=== PATIENT | male | born 1935 | race Caucasian/White ===

== ENCOUNTER 2016-07-15 18:24 | Inpatient (IN) | payer MEDICARE, OTHER ==
[~2016-07-15] VITALS: Ht 182.9 cm; Wt 113.3 kg
--- NOTE | ~2016-07-15 | HP ---
PATIENT'S NAME: TIGRE VIRGEN [facility] AGE: 81 Y [address] ROOM: [place] [address] LOCATION: GPCU ADMIT DATE: 07/15/2016 History & Physical DISCHARGE DATE: FAMILY PHYSICIAN: Mk Camilo MD ATTENDING PHYSICIAN: LARON SIMS V DATE OF SERVICE: CHIEF COMPLAINT: Rigors. HISTORY OF PRESENT ILLNESS: The patient is a relatively healthy, 81-year-old male, who was treated for "chest cold" with antibiotics several weeks ago. The patient was at his baseline state of health until early afternoon when he developed sudden onset of rigors, fevers, and generalized weakness. The patient went to the ER where he was found to have a pulse of 107, respirations 16, temperature 101.7, and saturating 84% on room air. The patient admits to some dyspnea, but denies any cough, nausea, or vomiting. He also endorses some generalized abdominal discomfort and was found to have considerable constipation on plain film of his abdomen. In the ER, his workup showed a questionable left lower lobe pneumonia as well as a white count of 1.4, platelets of 77. REVIEW OF SYSTEMS: All systems have been reviewed and are negative aside from the positives mentioned above. PAST MEDICAL HISTORY: 1. Atrial fibrillation, on Coumadin. 2. Essential hypertension. 3. Gout. 4. Permanent pacemaker. PAST SURGICAL HISTORY: Significant for a left hip arthroplasty. SOCIAL HISTORY: The patient has no history or ongoing toxic habits. 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 FAMILY HISTORY: PATIENT'S NAME: TIGRE VIRGEN [facility] AGE: 81 Y [address] ROOM: [place] [address] LOCATION: GPCU ADMIT DATE: 07/15/2016 History & Physical DISCHARGE DATE: FAMILY PHYSICIAN: Mk Camilo MD ATTENDING PHYSICIAN: LARON SIMS V Reviewed and is noncontributory. CURRENT MEDICATIONS: 1. Simvastatin. 2. Sildenafil. 3. Omeprazole. 4. Indomethacin. 5. Enalapril. 6. Aspirin. 7. Allopurinol. 8. Trazodone. 9. Warfarin. PHYSICAL EXAMINATION: VITAL SIGNS: At this point, his vital signs are, blood pressure 139/75, heart rate is 90s to 100s and irregular, and saturating 92% on 2 L nasal cannula, dropping into low 80s on room air. GENERAL: Appears as a well-developed, well-nourished, elderly male, in no acute distress. SKIN: Quite elliott throughout, which is his baseline. NEUROLOGICAL: Nonfocal. EYES: Show pupils are equal and reactive to light. LYMPHATIC: Shows no cervical lymphadenopathy. ENDOCRINE: Shows no thyromegaly. LUNGS: Exhibit crackles at bases bilaterally, most pronounced on the left. HEART: Reveals slightly tachycardic and irregular rhythm without appreciable murmurs, gallops, or rubs. GI: Shows a full belly with slightly diminished bowel sounds, but no tenderness or rebound. : Reveals no costovertebral angle tenderness. VASCULAR: Shows 2+ pedal pulses and trace bilateral lower extremity edema. MUSCULOSKELETAL: Unremarkable. PSYCHIATRIC: Reveals appropriate mood, cognition, and affect. DIAGNOSTIC DATA: Studies performed in the ER are significant for a lactate of 2.5. Unremarkable basic metabolic profile. Negative troponin. White count of 1.4, hemoglobin of 12.6, and platelets of 77; absolute neutrophil count is 1.2. Procalcitonin is 5.65. Unremarkable urinalysis. Chest x-ray shows a likely left lower lobe infiltrate. Abdominal film shows constipation. ASSESSMENT AND PLAN: This is a 81-year-old male, who will be admitted with: 1. Systemic inflammatory response syndrome, likely due to pneumonia. The patient has been broadly covered in the ER with vancomycin, Zosyn, and Levaquin as per my request given the presence of neutropenia. We will PATIENT'S NAME: TIGRE VIRGEN [facility] AGE: 81 Y [address] ROOM: [id number] [place] [id number] LOCATION: GPCU ADMIT DATE: 07/15/2016 History & Physical DISCHARGE DATE: FAMILY PHYSICIAN: Mk Camilo MD ATTENDING PHYSICIAN: LARON SIMS V continue with these agents for now. We will follow up blood cultures. We will hydrate the patient. We will check pneumococcal antigen. 2. Acute hypoxic respiratory failure. This is likely due to a pneumonia. The patient has regular followup in [facility] for his atrial fibrillation and was never told about heart failure. We will treat his pneumonia and does provide him with supplemental oxygen. 3. Atrial fibrillation, on anticoagulation. We will continue the patient on his anticoagulation and monitor his INR daily given that we are going to be starting him on antibiotics. 4. Essential hypertension. We will continue the patient on his antihypertensive regimen. 5. Leukopenia/neutropenia/thrombocytopenia. We will trend his blood counts and consider a Hematology evaluation. Additional management will depend on clinical course. Time dedicated to this patient's encounter is 35 minutes. MD KULWINDER EDMONDS/anabella /[id number] D: [id number] T: [id number] HISTORY & PHYSICAL
--- NOTE | ~2016-07-15 | CON ---
PATIENT'S NAME: GAL VIRGEN [facility] AGE: 81 Y [address] ROOM: [address] [place], [place] [address] LOCATION: GPCU ADMIT DATE: 07/15/2016 Consultation DISCHARGE DATE: FAMILY PHYSICIAN: Mk Camilo MD ATTENDING PHYSICIAN: LARON SIMS V DATE OF CONSULTATION: 07/18/2016 REFERRING PHYSICIAN: Kevon St MD HISTORY OF PRESENT ILLNESS: Mr. Gal Virgen is a 81-year-old male with acute uncharacterized pancytopenia and chronic uncharacterized thrombocytopenia. History of present illness is obtained from Mr. Virgen, whose memory is shaky for past events; Mrs. Virgen who obtained the patient's complete blood count in August 2015 from checking his files; from his hospitalist, Dr. Benson; and reviewing the current and old [facility] charts. Mr. Virgen was in his normal state of health until 07/15/2016. He lived in [place], [place] with his . He was retired. He could drive the car. He could do house work and lawn work. He was limited by knee pain. He could not walk any distance at a normal pace. The patient wants us to note that in March of 2016, he developed a nonproductive cough and coryza and had to see Dr. Camilo. Dr. Camilo prescribed antibiotics and his symptoms resolved after 2-3 days and he returned to his premorbid state. On 07/15/2016, the patient experienced violent disabling rigors. These lasted for an hour. His became concerned. He was disabled and had to be transported from the car to the emergency room in a wheelchair. He had no focal signs or symptoms other than a temperature of 101.7 degrees Fahrenheit noted in the [facility] Emergency Room. The patient reports no exposure to anybody with a similar illness. The patient was ill for 36 hours but has felt quite well for over a day. On 07/15/2016 in the emergency room, the urinalysis was unremarkable with rare bacteria. The white count was 1400 with 81 segs, 1 band. There was slight anisocytosis, marked poikilocytosis, many ovalocytes, and a few schistocytes. The ESR was 5. The INR was 1.6. The hemoglobin was 12.6 G/dL, MCV 89, and the platelets 77,000. Today the white count is 3300 with 60 segs and 19 bands. The hemoglobin is 10.4, the MCV 89, and the platelets of 56,000. Dohle bodies were present as well as moderate ovalocytosis, moderate anisocytosis, and slight microcytosis. The hemoglobin was 10.4 G/dL and the platelets were 56,000. The hemoglobin today is the lowest that it has been in the hospital. The platelets fell to 49,000 yesterday. A preadmission chemistry revealed the lactic acid level was elevated at 2.5 mEq/L. The CMS revealed the albumin was 3.2 G/dL and the eGFR was 58. Today the albumin is 2.4 G/dL and the AST is slightly elevated at 55 international units/L and the eGFR is 58. Serology for PATIENT'S NAME: GAL VIRGEN [facility] AGE: 81 Y [address] ROOM: [address] [address] LOCATION: GPCU ADMIT DATE: 07/15/2016 Consultation DISCHARGE DATE: FAMILY PHYSICIAN: Mk Camilo MD ATTENDING PHYSICIAN: LARON SIMS V influenza A and B was negative. The procalcitonin was 5.65 ng/mL upon admission. The blood cultures and urine cultures have revealed no growth. The two-view chest x-ray revealed left infrahilar and left basilar patchy opacity consistent with infiltrate and atelectasis as well as a small left pleural effusion. A cardiac pacemaker was in place. The KUB revealed a nonspecific bowel pattern. Dr. Roa and Dr. Sims communicated about the patient. In the emergency department levofloxacin, piperacillin-tazobactam, and vancomycin were initiated. The patient has improved rapidly. The patient does not recall when first prompted, that he had ever had pancytopenia or any individual cytopenias. When pressed, he acknowledge he might have been told he had low platelets. In June 2004, when the patient was hospitalized for an open reduction and internal fixation of a left peritrochanteric hip fracture, the white count was 6600, with 79% segs and 12% lymphocytes. The hemoglobin was 15.2 G/dL, the MCV 91, and the platelets were 103,000. In August 2015, at the outpatient lab of the [facility], the white blood cell count was 5100 with 1700 granulocytes, 1200 lymphocytes, 500 monocytes, and 200 eosinophils. Hemoglobin was 14.4 G/dL, the MCV 90, and the platelets 96,000. Active medical problems, chronic and diagnosed: 1. Paroxysmal atrial fibrillation, first noted in 2001. The patient has been on warfarin anticoagulation for thromboembolism prophylaxis. 2. Essential arterial hypertension noted in 1984 on a checkup. This has not been labile. 3. Gout first presenting in 2015 with left podagra. The patient has been on allopurinol for hyperuricemia and takes indomethacin if he has an acute episode. 4. Class I obesity. The BMI is 33.9 kg/M2 on 07/15/2016. 5. Tachycardia-bradycardia syndrome, requiring a permanent pacemaker in 2012. 6. Adenomatous polyposis of the colon noted in 2007. 7. Hypercholesterolemia noted in 2011. 8. Erectile dysfunction, on sildenafil. 9. GERD with diaphragmatic hernia. 10. 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 11. Chronic insomnia. The patient is on trazodone. Acute medical illnesses (resolved), past surgeries, injuries: 1. In 194 - tonsillectomy. 2. In 1979 - malaria. This was not falciparum malaria. This was contracted PATIENT'S NAME: GAL VIRGEN [facility] AGE: 81 Y [address] ROOM: [place] [address] [facility] ADMIT DATE: 07/15/2016 Consultation DISCHARGE DATE: FAMILY PHYSICIAN: Mk Camilo MD ATTENDING PHYSICIAN: LARON SIMS V when the patient was in [facility]. The patient experienced mild fevers and rigors. Quinine was administered and he was told the malaria was cured and the symptoms have never recurred. 3. From 1997 - 2016: Actinic keratoses have been frozen with liquid nitrogen. 4. In 2004, open reduction and internal fixation of a peritrochanteric left hip fracture with hip compression and trochanteric screws. 5. In 2004 - left total knee arthroscopy. 6. In 1997 - left tibial and fibular fracture. 7. In 2007 - colonoscopy. 8. In 2012 - permanent pacemaker placement. 9. In 2015 - right and left cataract extractions. 10. In 2017 - hospitalization for acute febrile illness with associated pancytopenia. MEDICATIONS: Upon hospitalization: 1. Allopurinol 100 mg p.o. daily. 2. ASA 81 mg p.o. daily. 3. Enalapril 20 mg p.o. b.i.d. 4. Indomethacin 50 mg p.o. t.i.d. p.r.n., acute gout. 5. Omeprazole 20 mg p.o. q.24 h. 6. Sildenafil 100 mg p.o. p.r.n. 7. Simvastatin 40 mg p.o. at bedtime. 8. Trazodone 50 mg p.o. at bedtime. 9. Warfarin sodium 5 mg p.o. on Tuesday, Tuesday, and Tuesday. ADVERSE REACTIONS TO MEDICATIONS, TRANSFUSIONS, ALLERGIES: 1. No medication allergies. 2. The patient has had no transfusions. 3. Herbals, alternative medicines, and vitamins: The patient acknowledges using 2000 international units of vitamin E daily and also uses lutein. Tobacco; none. Alcohol, two alcoholic beverages a week. Caffeine; a cup per day of coffee. IMMUNIZATIONS: Positive flu. Positive Pneumovax. Positive tetanus. Positive varicella zoster virus vaccine. FAMILY HISTORY: The patient's sister of cancer at less than 50. SOCIAL HISTORY: The patient was born in [place], [place] and graduated a [employer]. The patient attended [employer] PATIENT'S NAME: GAL VIRGEN [facility] AGE: 81 Y [address] ROOM: [id number] [place] [id number] [facility]: [facility] ADMIT DATE: 07/15/2016 Consultation DISCHARGE DATE: FAMILY PHYSICIAN: Mk Camilo MD ATTENDING PHYSICIAN: LARON SIMS V [place] and got a degree in business education, but he served 6 years in the [employer] prior to graduation from [employer]. 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 They have a son who with a daughter in [place], [place]. The patient is no longer a adventism goer. REVIEW OF SYSTEMS: Negative other than those noticed in the history of present illness. PHYSICAL EXAMINATION: VITAL SIGNS: Pulse 96 and regular, blood pressure 150/80, respiratory rate 20, and temperature 97.9. Height 72 inches, weight 113.3 kg (250 pounds). GENERAL APPEARANCE: Well-developed, obese, 81-year-old, male, in no acute distress. HEENT: Facial telangiectasias. LYMPH NODES: None palpable. NECK: Without JVD or carotid bruits. SKIN: Multiple actinic keratoses and solar keratoses. CHEST: Clear. CARDIOVASCULAR: Regular rhythm. No murmurs, bruits, or adventitious sounds. ABDOMEN: No masses, tenderness, or megaly. The spleen is not palpated. GENITAL AND RECTAL: Not examined. EXTREMITIES: Pretibial hemosiderosis. Pulses 2+ in the upper extremities. 1+ in lower extremities. Left knee scar. The patient also has a left hip scar. NEUROLOGIC: The patient is alert, oriented, and moves all 4 extremities. IMPRESSION: 1. A 81-year-old male with uncharacterized acute pancytopenia associated with an uncharacterized acute febrile illness, with a long-standing (dating back to June 2004), history of uncharacterized mild thrombocytopenia. 2. A reasonable working diagnosis for the longstanding mild thrombocytopenia is chronic idiopathic thrombocytopenic purpura, with no underlying cause. 3. The pancytopenia is probably due to an acute febrile bacterial illness. 4. There could be a component of hypersplenism as the patient is obese and has hypercholesterolemia. He might have mild hypersplenism from nonalcoholic fatty liver disease. 5. For practical purposes, the patient's chronic thrombocytopenia is longstanding and has never caused any morbidity and certainly does not threaten any mortality at this point. He probably has chronic idiopathic thrombocytopenic purpura. 6. For practical purposes, we know the pancytopenia developed after August 2015 and could well be associated with this sudden, paroxysmal, violent illness. If the leukopenia and anemia do not resolve over a PATIENT'S NAME: GAL VIRGEN [facility] AGE: 81 Y [address] ROOM: [address] [address] LOCATION: GPCU ADMIT DATE: 07/15/2016 Consultation DISCHARGE DATE: FAMILY PHYSICIAN: Mk Camilo MD ATTENDING PHYSICIAN: LARON SIMS V matter of weeks or months and if the thrombocytopenia progresses, a bone marrow aspiration biopsy and ultrasound might be warranted. At this point, monitoring the counts is sufficient. RECOMMEND: DIAGNOSTIC: 1. Return to Dr. Camilo's office on 07/26/2016 with a CBC with differential. TREATMENT: 1. No active therapy for the abnormal anemia, leukopenia, or thrombocytopenia. 2. Continue current medications. On rare occasions allopurinol can be associated with pancytopenia, but this may have been started after the patient's thrombocytopenia had already been noted in August of 2015. PATIENT EDUCATION: 1. Gave a customized sheet on what we think is going on and the [employer] material on ITP. KEVON ST MD GKB/modl /[id number] CC: MD Yvonne Del Rosario MD [facility] d: 07/18/16 2211 t: 07/21/16 1604, CONSULTATION REPORT
--- NOTE | ~2016-07-15 | ER ---
PATIENT'S NAME: TIGRE VIRGEN [facility] AGE: 81 Y [address] ROOM: [place] [address] LOCATION: GPCU ADMIT DATE: 07/15/2016 ER/Outpatient Report DISCHARGE DATE: FAMILY PHYSICIAN: Mk Camilo MD ATTENDING PHYSICIAN: LARON SIMS V Admission date and time are documented in the medical record. I saw the patient at 1840 hours. CHIEF COMPLAINT: Fever, rigors, nausea, shortness of breath, and lower abdominal bloating. HISTORY OF PRESENT ILLNESS: This patient is a 81-year-old male who got acutely ill around 1600 hours this afternoon. He had acute onset of fever with rigors and chills. He had nausea, but no vomiting or diarrhea. He had shortness of breath, but no cough or chest pain. He had lower abdominal bloating, but no vomiting, diarrhea, or urinary frequency, urgency, or dysuria. He is lightheaded and dizzy, but no syncope or near syncope. No fall or trauma. No headache, eyes, ears, nose, throat, neck, or spine pain. No joint muscle swelling, redness, or pain. No skin eruptions or rash. No history of endocrine problems, neuro changes, or psych issues. HOME MEDICATIONS: See attached medication list. ALLERGIES: NONE. SOCIAL HISTORY: Nonsmoker. Drinks alcohol on a daily basis. SIGNIFICANT PAST MEDICAL HISTORY: Atherosclerotic ischemic heart disease with coronary artery disease, paroxysmal atrial fibrillation, chronic anticoagulation with Coumadin, hypertension, gastroesophageal reflux, hiatal hernia, dyslipidemia, and daily alcohol usage. OPERATIONS: Open reduction and internal fixation of left knee fracture, pacemaker insertion, left knee arthroscopy, and left femur fracture surgery. REVIEW OF SYSTEMS: All systems reviewed by me are negative with the exception of those discussed in the history of present illness. PHYSICAL EXAMINATION: PATIENT'S NAME: TIGRE VIRGEN [facility] AGE: 81 Y [address] ROOM: [place] [address] LOCATION: GPCU ADMIT DATE: 07/15/2016 ER/Outpatient Report DISCHARGE DATE: FAMILY PHYSICIAN: Mk Camilo MD ATTENDING PHYSICIAN: LARON SIMS V VITAL SIGNS: Temperature 101.7, tympanic, pulse 107, respirations 16, blood pressure 169/80, O2 sat on room air was 84%, did place him on 2 L of oxygen per nasal cannula. HEAD: Normocephalic. EYES: Clear. EARS: Clear TMs bilaterally. NOSE AND THROAT: Clear. Mucous membranes moist. Teeth, jaw intact. NECK: No nuchal rigidity. No thyromegaly or cervical adenopathy. SPINE: Negative. LUNGS: Decreased breath sounds. Basilar rhonchi, coarse cough. The patient is mildly tachypneic. HEART: Tachy, regular. Pulses palpable. ABDOMEN: No chest wall or ribcage pain to palpation. ABDOMEN: Soft, nondistended, nontender. Good bowel tones. No organomegaly or abnormal mass palpable. EXTREMITIES: Without peripheral edema, cyanosis, or deformity. NEURO: Cranial nerves intact. No lateralizing signs. No mental status changes. SKIN: Clear. LABORATORY DATA: Chest x-ray shows what looks like a basilar infiltrate pneumonia. We will review x-ray with the radiologist. Laboratory white count was 1400, 81 segs, 1 band, 7 lymphs, 9 monos, 2 eos, hemoglobin is 12.6, hematocrit 40.7, and platelet count was 77,000. Sed rate was normal at 5, pro-time is 17.5 with an INR 1.6, procalcitonin was 5.65. Lactate was 2.5. Influenza A and B were negative. CMS was normal. Amylase and lipase were normal. CPK was 63. [id number] cardiac enzymes were normal. CRP was 0.53. Urine showed 0-2 whites, 0-2 reds, 0-2 epithelial cells, rare bacteria per high-powered field, negative nitrites. Culture pending. Blood cultures x2 drawn, results pending. EMERGENCY DEPARTMENT COURSE: I did start the patient on IV normal saline and fluids, gave him a liter, then put him at 150 mL an hour. Gave him IV vancomycin 15 mg/kg, Levaquin 750 mg, and Zosyn 4.5 g IV here in the emergency department. Kept him on oxygen. Blood cultures, urine culture obtained, results pending. IMPRESSION: 1. Sepsis with most likely source pneumonia. 2. Neutropenia with white count 1400 and neutropenia with a platelet count of 77,000. 3. Paroxysmal atrial fibrillation. 4. Chronic anticoagulation with Coumadin. 5. Atherosclerotic ischemic heart disease with coronary artery disease. PATIENT'S NAME: TIGRE VIRGEN [facility] AGE: 81 Y [address] ROOM: [place] [address] [facility] AD[facility] DATE: 07/15/2016 ER/Outpatient Report DISCHARGE DATE: FAMILY PHYSICIAN: Mk Camilo MD ATTENDING PHYSICIAN: LARON SIMS V 6. Hypertension. 7. Dyslipidemia. PLAN: I did discuss the patient with Dr. Sims, hospitalist. We will admit the patient to PCU telemetry for further evaluation. Discussion ensued with the patient and his concerning my findings and recommendations, they understand. Accumulated critical care time was 40 minutes. MD MALCOLM DIAZ/modl /[id number] d: 07/16/16 0129 t: 07/20/16 1831, OUTPATIENT REPORT
--- NOTE | ~2016-07-15 | DS ---
PATIENT'S NAME: TIGRE VIRGEN [facility] AGE: 81 Y [address] ROOM: [id number] [place], [place] [id number] LOCATION: GPCU ADMIT DATE: 07/15/2016 Discharge Summary DISCHARGE DATE: 07/19/2016 FAMILY PHYSICIAN: Mk Camilo MD ATTENDING PHYSICIAN: Rivera Kelsey V FINAL DIAGNOSES: 1. Severe sepsis with organ dysfunction. 2. Left lower lobe pneumonia, recurrent. 3. Thrombocytopenia, chronic. 4. Atrial fibrillation on chronic anticoagulation. 5. Gout. 6. Essential hypertension. 7. Coronary artery disease. 8. Pancytopenia. HISTORY OF PRESENT ILLNESS: For details of admission, please see the history and physical dictated by Dr. Kelsey. LABORATORY DATA: On admit, sodium 141, discharge 141, potassium on admit 3.9, discharge 4.1, chloride on admission was 108, discharge 111, BUN on admission 16, discharge 16, creatinine on admission 1.2, discharge 1.1, AST on admit 31, on the 18 55, ALT on admit 17, on the 18 30. Cardiac enzymes were negative. Uric acid was 7. C-reactive protein on admission was 0.53. White blood cell count on admission was 1.4, it did get as high as 5.3 on the , at discharge it was 3.3. On admission, he had 1% bands, on the 2nd day, he had 53% bands. Hemoglobin on admission was 12.6, with hydration did drop to 10.4, and platelet count on admission 77, got as low as 49, at discharge 56. Pro-time at discharge was 17.3 with an INR of 1.6. Influenza A was negative. Influenza B was negative. Procalcitonin on admission was 5.65 and on second hospital day was 98. Urinalysis did not show any evidence of infection. MICROBIOLOGY DATA: A 1/2 blood cultures was positive for Peptostreptococcus, was felt to be a contaminant. RADIOLOGIC DATA: Chest x-ray on admission showed a left infrahilar and left basilar opacity. HOSPITAL COURSE: The patient admitted to the hospital with a diagnosis of pneumonia. It was felt that he did have sepsis on admission. He was concerned because this is a recurrent pneumonia and he was started on vancomycin, Zosyn, and Levaquin. His blood pressure medications were discontinued because of his blood pressure. He was given IV hydration. He did have some improvement. Dr. Larsen was asked to see him because of his chronic thrombocytopenia, but it was also noted that he was neutropenic and PATIENT'S NAME: TIGRE VIRGEN [facility] AGE: 81 Y [address] ROOM: [place] [id number] LOCATION: GPCU ADMIT DATE: 07/15/2016 Discharge Summary DISCHARGE DATE: 07/19/2016 FAMILY PHYSICIAN: Mk Camilo MD ATTENDING PHYSICIAN: Rivera Kelsey V anemic on admission as well. Dr. Larsen did see him and felt that the neutropenia and the anemia were probably associated with acute febrile illness. He has known chronic thrombocytopenia, secondary to ITP. The plan was to monitor this and recheck it as an outpatient. If his platelet count continued to fall or the other count continue to fall, follow up with a bone marrow biopsy as an outpatient. The patient improved. His IV medications were converted to oral. On the , it was felt that he was stable for discharge. The vancomycin and Zosyn were stopped and he was sent home on Levaquin. DISCHARGE INSTRUCTIONS: He is to follow up with Dr. Camilo on the at that time to have CBC. I did speak with him about using yogurt and over-the- counter probiotics to prevent antibiotic induced diarrhea. MEDICATIONS: 1. Allopurinol 100 mg daily. 2. Enalapril 20 mg twice daily. 3. Indomethacin 50 mg 3 times daily as needed for gout. 4. Omeprazole 20 mg daily. 5. Viagra 100 mg daily as needed. 6. Zocor 40 mg at bedtime. 7. Trazodone 50 mg at bedtime as needed. 8. Aspirin 81 mg daily. 9. Coumadin 5 mg 3 days a week and 2.5 mg 4 days a week. 10. Levaquin 500 mg to be taken for 5 additional days. 11. Align as directed [id number]. PROGNOSIS: Overall, prognosis at discharge was good. TABATHA LINARES MD LAW/modl /[id number] CC: MD Mk Barber MD d: 07/21/16 0259 t: 07/28/16 1043, DISCHARGE SUMMARY
[2016-07-15 19:06] LABS: BILIRUBIN URINE NEGATIVE (NEGATIVE); BLOOD URINE 25 /UL (NEGATIVE); GLUCOSE URINE NEGATIVE (NEGATIVE); KETONE URINE NEGATIVE (NEGATIVE); LEUKOCYTES URINE NEGATIVE /UL (NEGATIVE); NITRITE URINE NEGATIVE (NEGATIVE); PROTEIN URINE NEGATIVE (NEGATIVE); SPEC GRAVITY URINE 1.015 (1.003-1.035); UROBILINOGEN URINE NORMAL (NORMAL)
[2016-07-15 19:16] LABS: COLOR URINE YELLOW (YELLOW); TURBIDITY URINE CLEAR (CLEAR)
[2016-07-15 19:22] LABS: HEMATOCRIT 40.7 % (37.0-53.0); HEMOGLOBIN 12.6 g/dL (11.0-16.0); MCH 27.6 pg (27.0-34.0); MCV 89.1 fl (83.0-98.0); PLATELET COUNT 77 K/uL (150-450); RBC 4.57 M/uL (3.50-5.50); RDW-CV 15.2 % (11.9-14.6)
[2016-07-15 19:24] LABS: WBC 1.4 K/uL (4.0-11.0)
[2016-07-15 19:28] LABS: INR - (THERAPEUTIC) 1.6 (0.9-1.1); PROTIME 17.5 SECONDS (9.6-11.1)
[2016-07-15 19:28] LABS: BACTERIA URINE RARE (NEGATIVE); EPITHELIAL URINE 0-2 #/HPF (NEGATIVE); RBC URINE 0-2 #/HPF (NEGATIVE); WBC URINE 0-2 #/HPF (NEGATIVE)
[2016-07-15 19:41] LABS: ALBUMIN 3.2 gm/dL (3.5-5.0); ALK PHOS 74 IU/L (33-138); ALT 17 IU/L (12-78); ANION GAP 10.9 (10.0-19.0); AST 31 IU/L (10-40); BLOOD UREA NITROGEN 16 mg/dL (6-24); CALCIUM 8.8 mg/dL (8.5-10.5); CHLORIDE 108 mMol/L (96-110); CO2 26 mMol/L (22-32); CPK 63 IU/L (35-332); CREATININE 1.2 mg/dL (0.6-1.3); ESTIMATED GFR (MDRD EQUATION) 58; POTASSIUM 3.9 mMol/L (3.7-5.1); SODIUM 141 mMol/L (135-145); TOTAL BILIRUBIN 0.8 mg/dL (0.0-1.5); TOTAL PROTEIN 6.3 g/dL (6.0-8.4)
[2016-07-15 20:23] LABS: ABSOLUTE NEUTROPHIL CT (ANC) 1.2 K/uL (1.4-9.0); BANDED NEUTROPHILS % 1 %; LYMPHOCYTE # 0.1 K/uL (0.8-4.0); LYMPHOCYTE % 7 %; MONOCYTE # 0.1 K/uL (0.0-1.0); SEGMENTED NEUTROPHIL # 1.1 K/uL (1.4-9.0); SEGMENTED NEUTROPHIL % 81 %
[2016-07-15] MEDS ORDERED: VASOTEC20 MG PO (23:32)
[2016-07-15] MEDS ORDERED: ZYLOPRIM100 MG PO (23:32)
[2016-07-15] MEDS ORDERED: INDOCIN50 MG PO (23:33)
[2016-07-15] MEDS ORDERED: PRILOSEC20 MG PO (23:34)
[2016-07-15] MEDS ORDERED: VIAGRA100 MG PO (23:36)
[2016-07-15] MEDS ORDERED: ZOCOR80 MG PO (23:36)
[2016-07-15] MEDS ORDERED: DESYREL50 MG PO (23:37)
[2016-07-15] MEDS ORDERED: ASPIRIN LO-DOSE81 MG PO (23:38)
[2016-07-15] MEDS ORDERED: COUMADIN **IA2.5 MG PO (23:40)
[2016-07-15] MEDS ORDERED: COUMADIN ** IA5 MG PO (23:40)
--- NOTE | 2016-07-16 01:28 | NUR ---
PATIENT ADMITTED WITH SEPSIS/PNEUMONIA. C/0 ABD FULLNESS. CAME INTO ER XRAY DONE. CURRENTLY ON 3L OXYGEN NASAL CANNULA. IV ABX STARTED. EDUCATED PATIENT ON USE OF CALL LIGHT. BED ALARM ON.
[2016-07-16 04:30] LABS: HEMATOCRIT 35.6 % (37.0-53.0); HEMOGLOBIN 11.1 g/dL (11.0-16.0); MCHC 31.2 gm/dL (32.0-36.5); MCV 89.7 fl (83.0-98.0); MPV 12.5 fl (9.4-12.4); PLATELET COUNT 62 K/uL (150-450); RBC 3.97 M/uL (3.50-5.50); RDW-CV 15.4 % (11.9-14.6); WBC 5.3 K/uL (4.0-11.0)
--- NOTE | 2016-07-16 04:38 | NUR ---
A/O. HR 70-80s. SBP 110-130s. AFEBRILE. 3L O2 NC. IV ABX. DENIES PAIN. NO BM. 1A WALKER GAIT BELT. VOIDS PER URINAL.
[2016-07-16 04:48] LABS: INR - (THERAPEUTIC) 1.7 (0.9-1.1); PROTIME 18.7 SECONDS (9.6-11.1)
[2016-07-16 04:53] LABS: ANION GAP 15.1 (10.0-19.0); CALCIUM 8.3 mg/dL (8.5-10.5); CREATININE 1.3 mg/dL (0.6-1.3); POTASSIUM 4.1 mMol/L (3.7-5.1)
[2016-07-16 05:24] LABS: ABSOLUTE NEUTROPHIL CT (ANC) 4.9 K/uL (1.4-9.0); BANDED NEUTROPHIL # 2.8 K/uL (0.0-0.1); BANDED NEUTROPHILS % 53 %; LYMPHOCYTE # 0.2 K/uL (0.8-4.0); LYMPHOCYTE % 3 %; MONOCYTE # 0.1 K/uL (0.0-1.0); SEGMENTED NEUTROPHIL # 2.1 K/uL (1.4-9.0); SEGMENTED NEUTROPHIL % 39 %
--- NOTE | 2016-07-16 15:01 | NUR ---
Introduced self and role of care management to pt. He lives with his and is independent with cares. He does not use any dme's and denies any post discharge needs. Will assist as needed.
--- NOTE | 2016-07-16 16:55 | NUR ---
Significant Event: A/OX3, VSS ON 1L PER NC WITH SATS >90%. PT. GETS UP SBA TO BATHROOM. BMX3 TODAY. NO COMPLAINTS OF PAIN. IV TO L)FA HAS IV ABX'S ONLY. Follow up: CONTINUE WITH POC.
--- NOTE | 2016-07-17 04:25 | NUR ---
Significant Event: Patient A/Ox3. VSS on 2L. Patient is up with minimal assist. Currently using walker, but wants to try walking without it soon since he does not use one at home. 3 stools this shift. No other changes. Follow up: Continue POC. Home in the next few days?
[2016-07-17 04:47] LABS: HEMATOCRIT 34.7 % (37.0-53.0); HEMOGLOBIN 10.8 g/dL (11.0-16.0); MCH 27.9 pg (27.0-34.0); MCHC 31.1 gm/dL (32.0-36.5); MCV 89.7 fl (83.0-98.0); MPV 12.3 fl (9.4-12.4); RBC 3.87 M/uL (3.50-5.50); RDW-CV 15.9 % (11.9-14.6); WBC 4.1 K/uL (4.0-11.0)
[2016-07-17 04:49] LABS: PLATELET COUNT 49 K/uL (150-450)
[2016-07-17 05:00] LABS: INR - (THERAPEUTIC) 1.5 (0.9-1.1); PROTIME 16.1 SECONDS (9.6-11.1)
[2016-07-17 05:08] LABS: ALBUMIN 2.4 gm/dL (3.5-5.0); ANION GAP 14.3 (10.0-19.0); CALCIUM 8.3 mg/dL (8.5-10.5); CREATININE 1.2 mg/dL (0.6-1.3); MAGNESIUM 1.7 mg/dL (1.3-2.6); POTASSIUM 4.3 mMol/L (3.7-5.1); TOTAL PROTEIN 5.1 g/dL (6.0-8.4)
[2016-07-17 05:09] LABS: PHOSPHORUS 1.5 mg/dL (2.5-4.9); TOTAL BILIRUBIN 1.3 mg/dL (0.0-1.5)
[2016-07-17 05:50] LABS: ABSOLUTE NEUTROPHIL CT (ANC) 3.6 K/uL (1.4-9.0); BANDED NEUTROPHIL # 1.8 K/uL (0.0-0.1); BANDED NEUTROPHILS % 45 %; LYMPHOCYTE # 0.3 K/uL (0.8-4.0); LYMPHOCYTE % 7 %; MONOCYTE # 0.3 K/uL (0.0-1.0); SEGMENTED NEUTROPHIL # 1.7 K/uL (1.4-9.0); SEGMENTED NEUTROPHIL % 42 %
--- NOTE | 2016-07-17 17:04 | NUR ---
Significant Event: A/OX3, VSS ON ROOM AIR, SATS >90%. NO COMPLAINTS OF PAIN. PT. GETS UP SELF TO BATHROOM WITH WALKER. IV TO L)WRIST IS SL. PT. WOULD LIKE A TYLENOL PM TONIGHT FOR SLEEP, STILL WAITING ON TO COME AROUND. Follow up: CONTINUE WITH POC.
[2016-07-18 04:07] LABS: HEMATOCRIT 33.2 % (37.0-53.0); HEMOGLOBIN 10.4 g/dL (11.0-16.0); MCH 27.9 pg (27.0-34.0); MCHC 31.3 gm/dL (32.0-36.5); MPV 13.6 fl (9.4-12.4); RBC 3.73 M/uL (3.50-5.50); RDW-CV 15.8 % (11.9-14.6); WBC 3.3 K/uL (4.0-11.0)
[2016-07-18 04:09] LABS: PLATELET COUNT 56 K/uL (150-450)
--- NOTE | 2016-07-18 04:15 | NUR ---
Signifcant Event: Patient A/Ox3. Up ad-thi when not connected to IV. IV Zosyn and Vanco given. Blood cultures tested positive for gram + cocci in chains. Physician notified. Follow up: Home Tuesday?
[2016-07-18 04:17] LABS: INR - (THERAPEUTIC) 1.3 (0.9-1.1); PROTIME 13.4 SECONDS (9.6-11.1)
[2016-07-18 04:18] LABS: ALBUMIN 2.3 gm/dL (3.5-5.0); ANION GAP 11.1 (10.0-19.0); BLOOD UREA NITROGEN 16 mg/dL (6-24); CALCIUM 8.8 mg/dL (8.5-10.5); CHLORIDE 111 mMol/L (96-110); CO2 23 mMol/L (22-32); CREATININE 1.1 mg/dL (0.6-1.3); ESTIMATED GFR (MDRD EQUATION) > 60; PHOSPHORUS 2.2 mg/dL (2.5-4.9); POTASSIUM 4.1 mMol/L (3.7-5.1); SODIUM 141 mMol/L (135-145)
[2016-07-18 05:19] LABS: ABSOLUTE NEUTROPHIL CT (ANC) 2.6 K/uL (1.4-9.0); BANDED NEUTROPHIL # 0.6 K/uL (0.0-0.1); BANDED NEUTROPHILS % 19 %; LYMPHOCYTE # 0.4 K/uL (0.8-4.0); LYMPHOCYTE % 11 %; MONOCYTE # 0.2 K/uL (0.0-1.0); SEGMENTED NEUTROPHIL % 60 %
--- NOTE | 2016-07-18 16:35 | NUR ---
Significant Event: A/OX3, VSS ON ROOM AIR. SBP 150'S. UP AD [place] IN ROOM. DR. ST SAW PT. TODAY & LEFT NOTE IN CHART FOR TO READ. NO COMPLAINTS OF PAIN. SLIV TO L)WRIST. POSSIBLE D/C TO HOME TODAY, STILL WAITING FOR DREmory TO ROUND. D/C MEDS TO CHART IN CASE. HR SOMETIMES GETS UP TO 150'S WITH ACTIVITY. Follow up: CONTINUE WITH POC.
--- NOTE | 2016-07-19 04:16 | NUR ---
Significant Event: Patient A/Ox3. VSS on RA. Patient did have higher blood pressures this shift than he has the past two shifts. First assessment BP was 175/100. Lisinopril had just been given 1 hour previously. Patient's lowest blood pressure tonight was 158/86. IV Zosyn and IV vanco given. Up independently in room. Follow Up: Home today?
[2016-07-19 06:02] LABS: INR - (THERAPEUTIC) 1.6 (0.9-1.1); PROTIME 17.3 SECONDS (9.6-11.1)
[2016-07-19] MEDS ORDERED: LEVAQUIN500 MG PO (13:56)
[2016-07-19] MEDS ORDERED: ALIGN4 MG (13:59)
--- NOTE | 2016-07-19 16:36 | NUR ---
PATIENT IS A/OX3, VSS ON ROOM AIR. NO COMPLAINTS OF PAIN. DIMISSAL & NEW MEDICATIONS, INSTRUCITONS GONE OVER WITH PATIENT, NO FURTHER QUESTIONS AT THIS POINT. PT. IS UP AD FR[place]ICK IN ROOM WITH WALKER. LEFT WRIST IV REMOVED WITHOUT DIFFICULTLY.
== END 2016-07-19 16:20 | disposition disaster alternative care site (69) | DRG 871 ==
LOC: GMED 18:24 → GPCU 22:28
PROVIDERS: Emergency Medicine; Internal Medicine; ADMIT Internal Medicine
DX: A41.9 Sepsis, unspecified organism (principal); J18.1 Lobar pneumonia, unspecified organism; J96.01 Acute respiratory failure with hypoxia; D61.818 Other pancytopenia; D69.6 Thrombocytopenia, unspecified; I49.5 Sick sinus syndrome; I48.0 Paroxysmal atrial fibrillation; I48.2 Chronic atrial fibrillation; D64.9 Anemia, unspecified; E78.5 Hyperlipidemia, unspecified; I10 Essential (primary) hypertension; I25.10 Atherosclerotic heart disease of native coronary artery without angina pectoris; I25.9 Chronic ischemic heart disease, unspecified; R65.20 Severe sepsis without septic shock; Z79.01 Long term (current) use of anticoagulants; M10.9 Gout, unspecified; Z79.82 Long term (current) use of aspirin; Z95.0 Presence of cardiac pacemaker; D72.819 Decreased white blood cell count, unspecified; K21.9 Gastro-esophageal reflux disease without esophagitis; K44.9 Diaphragmatic hernia without obstruction or gangrene; E66.9 Obesity, unspecified; Z68.33 Body mass index [BMI] 33.0-33.9, adult; N52.9 Male erectile dysfunction, unspecified; F51.04 Psychophysiologic insomnia
CPT/HCPCS: J1956; J2405; J2543; J3370; J7030; J7040; J7050